=== PATIENT | female | born 1985 | race Caucasian/White ===

== ENCOUNTER 2021-10-23 13:07 | Emergency (ER) | payer OTHER, MEDICARE, SELFPAY ==
[2021-10-23 13:18] VITALS: BP 116/86; PULSE 98; RESP 20; TEMP 36.6; O2SAT 99
--- NOTE | 2021-10-23 13:37 | ED.URI ---
HPI - URI/Sore Throat General Chief Complaint: Upper Respiratory Infection Stated Complaint: fever,cough,chest tightness Time Seen by Provider: 10/23/21 13:30 Source: patient and RN notes reviewed Mode of arrival: ambulatory Limitations: no limitations History of Present Illness HPI Narrative: Patient presents today complaining of a 2-day history of fever up to 102, sore throat, cough, congestion, rhinorrhea, chest congestion, shortness of breath with exertion. She has been taking DayQuil and NyQuil without much relief. History of cystic fibrosis. MD elicited complaint: fever, cough, sore throat, rhinorrhea and nasal congestion Related Data Home Medications Medication Instructions Recorded Confirmed Creon 10/23/21 bupropion HCl mg PO 10/23/21 qopjvqsvgd-qwfjkcajpzudi-pwfc cap 10/23/21 clonazepam 10/23/21 mtazwznzvgo-tuvoatbmgm-qfjyjzp ea PO 10/23/21 [Trikafta] estradiol 10/23/21 gabapentin 10/23/21 pantoprazole PO 10/23/21 sertraline mg 10/23/21 Allergies Allergy/AdvReac Type Severity Reaction Status Date / Time adhesive tape Allergy Unknown Verified 10/23/21 13:26 diphenhydramine Allergy Unknown Verified 10/23/21 13:26 [From Benadryl] morphine Allergy Unknown Verified 10/23/21 13:26 Review of Systems Review of Systems: CONSTITUTIONAL: Denies chills, or sweats.+ Body aches, fever EYES: Denies visual changes, redness, or discharge. ENT: Denies otalgia.+ Sore throat, rhinorrhea, congestion CARDIOVASCULAR: Denies chest pain, palpitations, or edema. RESPIRATORY: + Cough, shortness of breath with exertion, chest congestion GASTROINTESTINAL: Denies abdominal pain, nausea, vomiting, or diarrhea. GENITOURINARY: Denies dysuria or hematuria. SKIN: Denies rash, itching, or wounds. MUSCULOSKELETAL: Denies back pain, joint pain, or myalgia. NEUROLOGIC: Denies headache, numbness, tingling, or weakness. PSYCH: Denies depression or anxiety. [facility] Past Medical History Medical History (Updated 10/23/21 @ 13:47 by Danyelle Deleon, AGRICULTURAL SCIENTIST, ) Cystic fibrosis Comments At time of signature, I have reviewed and agree with nursing past medical, surgical, social and family history unless otherwise noted. Please see nursing chart for further information. There is no relevant family history pertinent to the presenting complaint Exam Narrative: GENERAL: Mildly ill-appearing, well-nourished, and in no acute distress. HEAD: Normocephalic, atraumatic. EYES: EOMI. No redness or drainage. Conjunctivae normal. ENT: Mucous membranes pink and moist. Nares congested. No rhinorrhea. TMs normal bilaterally. Throat normal. Uvula midline. NECK: Normal AROM. Supple. No lymphadenopathy. CHEST: No respiratory distress. Clear to auscultation. HEART: Regular rate and rhythm. No murmur appreciated. Normal peripheral pulses. EXTREMITIES: Normal range of motion. No edema. SKIN: Warm, dry, no rash. Capillary refill normal. Normal skin turgor. NEURO: No focal deficits. Alert and oriented x3. Gait steady. PSYCH: Normal affect. No signs of depression or anxiety. Course Course Emergency Course: Declines Tamiflu. Discussed side effects and benefits. Anticipatory guidance given and when to go to ER. Vital Signs Vital signs: Vital Signs Temperature 97.8 F 10/23/21 13:18 Pulse Rate 98 10/23/21 13:18 Respiratory Rate 20 10/23/21 13:18 Blood Pressure 116/86 10/23/21 13:18 Pulse Oximetry 99 10/23/21 13:18 Temperature 97.8 F 10/23/21 13:18 Pulse Rate 98 10/23/21 13:18 Respiratory Rate 20 10/23/21 13:18 Blood Pressure 116/86 10/23/21 13:18 Pulse Oximetry 99 10/23/21 13:18 Reviewed. Pt has been instructed to follow up with her PCP regarding her elevated blood pressure today. MDM - URI/Sore Throat Differential Diagnosis Differential diagnosis: Likely upper respiratory infection, viral infection, bronchitis, influenza, pharyngitis and other (Strep throat) Lab Data Attestation: I re
== END 2021-10-23 13:51 | disposition home or self-care (01) ==
PROVIDERS: Emergency Provider Nurse Practitioner
DX: J10.1 Influenza due to other identified influenza virus with other respiratory manifestations (principal)
CPT/HCPCS: 87081; 87804; 87880; 99203; G0463